=== PATIENT | male | born 1960 | race Caucasian/White ===

== ENCOUNTER → 2018-05-28 07:51 | Outpatient (CLI) | payer OTHER, SELFPAY ==
[2018-05-28 10:02] LABS: Chol/HDL Ratio 8.6 (1-3.5); Cholesterol 268 mg/dL (140-200); HDL Cholesterol 31 mg/dL (27-67); LDL Cholesterol 184 mg/dL (0-130); Triglycerides 267 mg/dL (30-200); VLDL Cholesterol 53 mg/dL (0-40)
== END ==
PROVIDERS: Visit Provider Nurse Practitioner Family
DX: E78.5 Hyperlipidemia, unspecified (principal)
CPT/HCPCS: 36415; 80061